=== PATIENT | male | born 1995 | race Caucasian/White ===

== ENCOUNTER 2016-09-24 18:29 | Emergency (ER) | payer SELFPAY ==
[~2016-09-24] VITALS: Ht 190.5 cm; Wt 95.5 kg
[2016-09-24 18:37] VITALS: TEMP 97.3
[2016-09-24 20:05] VITALS: BP 147/77; PULSE 80
== END 2016-09-24 20:05 | disposition home or self-care (01) ==
LOC: COL.ER 18:29
DX: S61.412A Laceration without foreign body of left hand, initial encounter (principal); W26.0XXA Contact with knife, initial encounter

== ENCOUNTER 2016-10-04 12:16 | Emergency (ER) | payer SELFPAY | END 2016-10-04 12:45 | disposition home or self-care (01) | LOC: COL.ER 12:16 | DX: Z48.02 Encounter for removal of sutures (principal) ==